=== PATIENT | male | born 1965 | race Caucasian/White ===

== ENCOUNTER 2018-06-30 18:09 | Emergency (ER) | payer OTHER ==
[~2018-06-30] VITALS: Ht 165.1 cm; Wt 87.0 kg
[2018-06-30 18:25] VITALS: Ht 165.1 cm; Wt 87.0 kg
[2018-06-30] MEDS ORDERED: ASPIRIN 325 MG TAB PO STA (19:08)
[2018-06-30] MEDS ORDERED: FAMOTIDINE 20 MG INJ IV ONE (19:30)
[2018-06-30] MEDS ORDERED: METO-429 PO (19:47)
[2018-06-30] MEDS ORDERED: BENA40TA56 PO (19:47)
[2018-06-30] MEDS ORDERED: ASPI-817 PO (19:48)
[2018-06-30] MEDS ORDERED: CHOLESTEROL PO (19:49)
[2018-06-30] MEDS ORDERED: [UNRECOGNIZED DRUG - REMARK] PO (19:51)
--- NOTE | 2018-06-30 21:06 | ERD ---
ER Documentation Chief Complaint Chief Complaint cp/epigastric pain x 1 day. ems gave ntg and 162mg of asa HPI 53-year-old male history of hypertension, hyperlipidemia and coronary artery disease status post PCI in 2011 presents to the ED via rescue ambulance for evaluation of chest pain. ROS All systems reviewed and are negative except as per history of present illness. Medications Home Meds Reported Medications [Antibiotic 500MG] No Conflict Check, 500 MG PO Q8H for FOR TEETH START DATE 06/28/18 06/30/18 [Cholesterol] No Conflict Check, 1 TAB PO QHS 06/30/18 Aspirin* (Aspirin* EC) 81 Mg Tablet.dr, 81 MG PO DAILY, TAB 06/30/18 Benazepril Hcl* (Benazepril Hcl*) 40 Mg Tablet, 40 MG PO DAILY, #30 TAB 06/30/18 Metoprolol Tartrate* (Lopressor*) 50 Mg Tab, 50 MG PO BID, #60 TAB 06/30/18 Allergies Allergies: Coded Allergies: No Known Allergy (Unverified , 06/30/18) PMhx/Soc History of Surgery: Yes (Cardiac stent 2011) Anesthesia Reaction: No Hx Neurological Disorder: No Hx Respiratory Disorders: No Hx Cardiac Disorders: Yes (Stent/Heart disease) Hx Psychiatric Problems: No Hx Miscellaneous Medical Probl: No Hx Alcohol Use: Yes (Casually) Hx Substance Use: No Hx Tobacco Use: Yes Smoking Status: Current every day smoker FmHx Diabetes, hypertension, coronary artery disease Physical Exam Vitals Vital Signs Date Temp Pulse Resp B/P (MAP) Pulse Ox O2 O2 Flow FiO2 Time Delivery Rate 06/30/18 98.1 85 12 123/81 99 Room Air 19:02 (95) 06/30/18 98.1 82 18 110/82 99 18:25 (91) Physical Exam Const: No acute distress Head: Atraumatic Eyes: Normal Conjunctiva ENT: Normal External Ears, Nose and Mouth. Neck: Full range of motion. No meningismus. Resp: Clear to auscultation bilaterally Cardio: Regular rate and rhythm, no murmurs Abd: Soft, non tender, non distended. Normal bowel sounds Skin: No petechiae or rashes Back: No midline or flank tenderness Ext: No cyanosis, or edema Neur: Awake and alert Psych: Normal Mood and Affect Result Diagram: 06/30/18192706/30/181927 Results 24 hrs Laboratory Tests Test 06/30/18 19:28 White Blood Count 11.5 10^3/ul Red Blood Count 5.76 10^6/ul Hemoglobin 14.8 g/dl Hematocrit 45.6 % Mean Corpuscular Volume 79.2 fl Mean Corpuscular Hemoglobin 25.7 pg Mean Corpuscular Hemoglobin Concent 32.5 g/dl Red Cell Distribution Width 14.4 % Platelet Count 283 10^3/UL Mean Platelet Volume 10.3 fl Immature Granulocytes % 0.300 % Neutrophils % 59.0 % Lymphocytes % 29.4 % Monocytes % 8.4 % Eosinophils % 2.4 % Basophils % 0.5 % Nucleated Red Blood Cells % 0.0 /100WBC Immature Granulocytes # 0.040 10^3/ul Neutrophils # 6.8 10^3/ul Lymphocytes # 3.4 10^3/ul Monocytes # 1.0 10^3/ul Eosinophils # 0.3 10^3/ul Basophils # 0.1 10^3/ul Nucleated Red Blood Cells # 0.0 10^3/ul Sodium Level 139 mmol/L Potassium Level 4.3 mmol/L Chloride Level 103 mmol/L Carbon Dioxide Level 25 mmol/L Anion Gap 11 Blood Urea Nitrogen 12 mg/dl Creatinine 0.66 mg/dl Est Glomerular Filtrat Rate mL/min > 60 mL/min Glucose Level 112 mg/dl Calcium Level 10.1 mg/dl Total Bilirubin 0.4 mg/dl Direct Bilirubin 0.00 mg/dl Indirect Bilirubin 0.4 mg/dl Aspartate Amino Transf (AST/SGOT) 20 IU/L Alanine Aminotransferase (ALT/SGPT) 32 IU/L Alkaline Phosphatase 36 IU/L Troponin I < 0.012 ng/ml Total Protein 8.3 g/dl Albumin 4.6 g/dl Globulin 3.70 g/dl Albumin/Globulin Ratio 1.24 Lipase 82 U/L Current Medications Medications Dose Sig/Shauna Start Time Status Last (Trade) Ordered Route PRN Stop Time Admin Dose Reason Admin Aspirin 325 mg ONCE STAT 06/30/18 DC 06/30/18 (Aspirin) PO 19:08 19:39 06/30/18 19:11 Famotidine 20 mg ONCE ONCE 06/30/18 DC 06/30/18 (Pepcid Iv) IV 19:30 19:39 06/30/18 19:31 Procedures/MDM DOCUMENTS REVIEWED: ED nurse, no prior records EKG: Time: 18:47. Sinus rhythm. Ventricular rate 84. Normal [place] and QRS. No acute ST segment elevation or depression. No ectopy. My Interpretation Time: 22:36. Sinus rhythm. Ventricular rate 70. Normal [place] and QRS. Sinus ar rhythmia but no ectopy. No acute ST segment elevation or depression. My Interpretation IMAGING: PROCEDURE: XR Chest. CLINICAL INDICATION: Chest pain TECHNIQUE: Single portable view of the chest was obtained COMPARISON: None FINDINGS: The heart and mediastinum are within normal limits. There are mild bibasilar atelectatic changes. The lungs are otherwise clear. There is no pleural effusion or pneumothorax. RPTAT: AA IMPRESSION: Mild bibasilar atelectatic changes. .Von Krishna MD, MD Date Time Electronically viewed and signed by .Von Krishna MD, MD on 06/30/2018 19:46 .S/ ED COURSE: [] REEXAMINATION/REEVALUATION: Time: [] MEDICAL DECISION MAKIN-year-old male history of hypertension, hyperlipidemia and coronary artery disease status post PCI in 2011 presents to the ED via rescue ambulance for evaluation of chest pain. The patient presents with chest pain and I considered pulmonary embolism, aortic dissection, pneumothorax among other diagnoses. Evaluation for acute coronary syndrome was performed. The HEART score was utilized for risk stratification and found to be = 3. Repeat EKG and troponin @ 3 hours were unchanged. Based on this evaluation the patients risk of major adverse cardiac events is <1%. Shared decision making occurred with patient and the decision has been made to dischar ge the patient for outpatient evaluation and functional study within 72 hours. Stable for discharge with precautionary instructions and outpatient follow-up as counseled. Counseled patient[ and family] regarding diagnostic workup, diagnosis and need for followup. Understands to return to ED if symptoms recur, worsen or any other concerns. TYRA SO MD Jun 30, 2018 21:06
[2018-06-30] MEDS ORDERED: FAMO-96 PO (22:57)
[2018-06-30 23:27] VITALS: BP 128/81; PULSE 83; RESP 12
== END 2018-06-30 23:37 | disposition home or self-care (01) ==
LOC: E/R 18:09
DX: R10.13 Epigastric pain (principal); I10 Essential (primary) hypertension; I25.10 Atherosclerotic heart disease of native coronary artery without angina pectoris; F17.210 Nicotine dependence, cigarettes, uncomplicated; Z98.61 Coronary angioplasty status; Z79.82 Long term (current) use of aspirin
CPT/HCPCS: 36415; 71045; 80053; 83690; 84484; 85025; 93005; 96374; Z7502; Z7610